=== PATIENT | female | born 1935 | race Caucasian/White ===

== ENCOUNTER 2018-10-10 16:45 | Inpatient (IN) | payer OTHER, MEDICARE ==
[~2018-10-10] VITALS: Ht 162.6 cm; Wt 63.5 kg
--- NOTE | 2018-10-10 16:55 | NUR ---
PT YASMIN [facility] C/O R HIP AND RLE PAIN S/P GLF. PT DENIES ANY HEAD TRAUMA. NO OBVIOUS DEFORMITY NOTED. PLACED ON MONITOR. AWAITING MD LEE.
--- NOTE | 2018-10-10 16:56 | NUR ---
DR BLOOM AT BEDSIDE FOR EVAL.
--- NOTE | 2018-10-10 17:08 | NUR ---
PT TO RADIOLOGY FOR PELVIC CT SCAN VIA [facility].
[2018-10-10] MEDS ORDERED: TRAMADOL HCL 50 MG TABLET ONE (17:26)
[2018-10-10] MEDS ORDERED: TRAMADOL HCL 50 MG TABLET PO ONE (17:30)
[2018-10-10] MEDS ORDERED: ONDANSETRON HCL/PF 4 MG/2 ML VIAL ONE (18:14)
[2018-10-10] MEDS ORDERED: MORPHINE SULFATE INJ 4 MG/ML DISP.SYRIN ONE (18:14)
[2018-10-10 18:17] LABS: BASOPHILS % (AUTO) 0.7 % (0.0-2.0); EOSINOPHILS % (AUTO) 1.2 % (0.0-6.0); HEMATOCRIT 41 % (33-45); HEMOGLOBIN 14.5 g/dL (11.5-14.8); LYMPHOCYTES # (AUTO) 2.1 /CMM (0.8-4.8); LYMPHOCYTES % (AUTO) 34.4 % (20.0-44.0); MEAN CORPUSCULAR HGB CONC 35 g/dl (31.0-36.0); MEAN CORPUSCULAR VOLUME 88 fL (82-100); MONOCYTES # (AUTO) 0.6 /CMM (0.1-1.30); MONOCYTES % (AUTO) 9.8 % (2.0-12.0); NEUTROPHILS # (AUTO) 3.4 /CMM (1.8-8.9); NEUTROPHILS % (AUTO) 53.9 % (43.0-81.0); PLATELET COUNT (AUTO) 215 /CMM (150-450); RED BLOOD CELL COUNT(AUTO) 4.65 MIL/uL (4.0-5.2); WHITE BLOOD COUNT (AUTO) 6.2 K/uL (4.3-11.0)
[2018-10-10] MEDS ORDERED: TRAM50TA2 PO (18:17)
[2018-10-10] MEDS ORDERED: PRAM0.258 PO (18:17)
[2018-10-10] MEDS ORDERED: LOSA50TA39 PO (18:17)
--- NOTE | 2018-10-10 18:18 | NUR ---
CALLED SENIOR TRAINING SPECIALIST ORTHO (LUIS). DR BLOOM SPOKE WITH HER.
[2018-10-10 18:25] LABS: CALCIUM, SERUM 9.9 mg/dL (8.5-10.1); CARBON DIOXIDE 26 mmol/L (21-32); CHLORIDE 99 mmol/L (98-107); CREATININE 0.7 mg/dL (0.6-1.3); GLUCOSE 124 mg/dL (74-106); POTASSIUM 3.9 mmol/L (3.5-5.1); SODIUM SERUM 136 mmol/L (136-145); UREA NITROGEN, BLOOD 20 mg/dL (7-18)
[2018-10-10] MEDS ORDERED: MORPHINE SULFATE INJ 2 MG/ML DISP.SYRIN IV ONE (18:30)
[2018-10-10] MEDS ORDERED: ONDANSETRON HCL/PF 4 MG/2 ML VIAL IVP ONE (18:30)
--- NOTE | 2018-10-10 18:41 | NUR ---
CALLED FOR MED-SURGE BED, TURNED IN MOVE SHEET
--- NOTE | 2018-10-10 19:09 | NUR ---
CALLED [facility], DR WILL WAS PAGED
--- NOTE | 2018-10-10 19:38 | NUR ---
REPORT GIVEN TO JERZY BULLARD FOR FLOYD.
--- NOTE | 2018-10-10 19:48 | NUR ---
REPORT GIVEN TO ANTHONY BULLARD FOR FLOYD
--- NOTE | 2018-10-10 19:50 | NUR ---
TAVERAS CATH FR# 16 INSERTED UNDER ASEPTIC TECHNIQUE.DRAINING MODERATE AMOUNT CLEAR YELLOW URINE.PATIENT TOLERATED PROCEDURE WELL.
--- NOTE | 2018-10-10 19:58 | NUR ---
ICE CHIP GIVEN TO PT FOR DRY MOUTH. APPROVEED BY
--- NOTE | 2018-10-10 20:04 | NUR ---
PATIENT LEFT VIA GURNEY IN [place] CONDITION ACCOMPANIED BY HEDIS SPECIALIST.
--- NOTE | 2018-10-10 20:17 | NUR ---
MS/RN OPENING NOTES PT RECEIVED FROM ER VIA [facility] ACCOMPANIED BY . A/OX3. ON ROOM AIR, BREATHING EVEN AND UNLABORED. DENIES SOB AND PAIN AT THIS TIME. IN NO ACUTE RESPIRATORY DISTRESS. IV TO RAC PATENT AND INTACT. TAVERAS IN PLACE AND DRAINING TO GRAVITY. ORIENTED PT TO ROOM AND CALL LIGHT. HOB ELEVATED AND BILAT. UPPER SIDE RAILS IN PLACE. BED IN LOW/LOCKED POSITION WITH CALL LIGHT IN REACH. WILL CONTINUE TO MONITOR
[2018-10-10 20:24] VITALS: BP 144/96
[2018-10-10 20:30] VITALS: BP 144/96
[2018-10-10] MEDS ORDERED: ZOLPIDEM TARTRATE 5 MG TABLET PO PRN (21:00)
[2018-10-10] MEDS ORDERED: HYDROCODONE/APAP 5/325MG 1 EACH TABLET PO PRN (21:00)
[2018-10-10] MEDS ORDERED: MAG HYDROX/AL HYDROX/SIMETH 30 ML UDC PO PRN (21:00)
[2018-10-10] MEDS ORDERED: HYDROCODONE/APAP 10/325MG 1 EA TABLET PO PRN (21:00)
[2018-10-10] MEDS ORDERED: MAGNESIUM HYDROXIDE 30 ML UDC PO PRN (21:00)
[2018-10-10] MEDS ORDERED: Z GUARD REMEDY 2 OZ OINT TP PRN (21:00)
[2018-10-10] MEDS: ENOXAPARIN SODIUM 40 MG/0.4 ML DISP.SYRIN SQ SCH (22:08)
[2018-10-10] MEDS: LOSARTAN POTASSIUM 50 MG TABLET PO SCH (22:08)
--- NOTE | 2018-10-10 22:23 | NUR ---
MD KVNG WILL AT BEDSIDE
[2018-10-10 23:22] VITALS: BP 147/72
[2018-10-11] VITALS: BP 128/70
--- NOTE | 2018-10-11 00:38 | NUR ---
PAGED EPIC NOTIFIED DR. CALDERON THAT PT'S HR IS STILL ELEVATED 121, BP 128/70. WITH NO C/O PAIN, IN NO DISTRESS. PT IS SLEEPING WELL AND DOES NOT HAVE SOB. DR. CALDERON ORDERED EKG. NOTIFIED RESPIRATORY
--- NOTE | 2018-10-11 01:04 | NUR ---
RELAYED EKG RESULT NO NEW ORDERS
--- NOTE | 2018-10-11 02:39 | NUR ---
PT ROUNDING DONE PT ASLEEP, HOB ELEVATED. BREATHING EVEN AND UNLABORED. DOES NOT APPEAR TO BE IN PAIN OR DISTRESS. WILL CONTINUE TO MONITOR
[2018-10-11] MEDS: ACETAMINOPHEN 325 MG TABLET PO PRN ×3 (03:49→22:11)
--- NOTE | 2018-10-11 04:41 | NUR ---
PT ROUNDING DONE PT ASLEEP, HOB ELEVATED. BREATHING EVEN AND UNLABORED. IN NO ACUTE DISTRESS. WITH MILD PAIN TO RLE AND REQUESTED TYLENOL WHICH WAS ADMINISTERED AT 0349 WITH SMALL SIP OF WATER. NO ADDITIONAL NEEDS EXPRESSED
--- NOTE | 2018-10-11 06:36 | NUR ---
MS/RN CLOSING NOTES PT ASLEEP, A/OX4. ON ROOM AIR, BREATHING EVEN AND UNLABORED. DENIES SOB AND PAIN AT THIS TIME. IV TO LAC PATENT AND INTACT. TAVERAS IN PLACE AND DRAINING TO GRAVITY. NO SIGNIFICANT CHANGES OVERNIGHT. REPOSITIONED TOLERATED. ALL NEEDS MET. BED IN LOW/LOCKED POSITION WITH CALL LIGHT IN REACH, BILAT. UPPER SIDE RAILS IN PLACE. PT REQUESTING TO BE TRANSFERRED TO [facility]. WILL ENDORSE TO DAY SHIFT RN FLOYD.
[2018-10-11 07:13] LABS: BASOPHILS % (AUTO) 0.7 % (0.0-2.0); HEMATOCRIT 39 % (33-45); HEMOGLOBIN 13.1 g/dL (11.5-14.8); MEAN CORPUSCULAR HGB CONC 34 g/dl (31.0-36.0); MEAN CORPUSCULAR VOLUME 90 fL (82-100); MONOCYTES # (AUTO) 0.8 /CMM (0.1-1.30); MONOCYTES % (AUTO) 11.3 % (2.0-12.0); NEUTROPHILS # (AUTO) 3.9 /CMM (1.8-8.9); PLATELET COUNT (AUTO) 208 /CMM (150-450); RED BLOOD CELL COUNT(AUTO) 4.29 MIL/uL (4.0-5.2); WHITE BLOOD COUNT (AUTO) 6.8 K/uL (4.3-11.0)
[2018-10-11 07:13] LABS: CALCIUM, SERUM 8.6 mg/dL (8.5-10.1); CARBON DIOXIDE 26 mmol/L (21-32); CHLORIDE 101 mmol/L (98-107); CREATININE 0.8 mg/dL (0.6-1.3); GLUCOSE 130 mg/dL (74-106); MAGNESIUM 2.3 mg/dL (1.8-2.4); PHOSPHORUS 4.4 mg/dL (2.5-4.9); POTASSIUM 4.1 mmol/L (3.5-5.1); SODIUM SERUM 137 mmol/L (136-145); UREA NITROGEN, BLOOD 19 mg/dL (7-18)
[2018-10-11 07:17] LABS: CHOLESTEROL 178 mg/dL (<200); HDL CHOLESTEROL 93 mg/dL (40-60); LDL 76 mg/dL (0-99); TRIGLYCERIDES 59 mg/dL (30-150)
--- NOTE | 2018-10-11 07:30 | NUR ---
MS/RN Cardio consult Spoke to US on 3W and asked to inform Dr Taylor that there is a cardiac consult for surgery clearance.
[2018-10-11 07:36] VITALS: BP 129/68
[2018-10-11 08:03] VITALS: BP 129/68
--- NOTE | 2018-10-11 08:08 | NUR ---
MS/circuits engineer Spoke with ortho, and made aware of new consult. Patient to remain NPO until reviewed by Dr Savage.
[2018-10-11] MEDS: PANTOPRAZOLE 40 MG TABLET.DR PO SCH (08:31)
[2018-10-11] MEDS: ONDANSETRON HCL/PF 4 MG/2 ML VIAL IVP PRN (08:31)
[2018-10-11] MEDS: LOSARTAN POTASSIUM 50 MG TABLET PO SCH (08:32)
[2018-10-11] MEDS: PRAMIPEXOLE DI-HCL 0.25 MG TABLET PO SCH ×3 (08:32→14:39)
[2018-10-11] MEDS: MORPHINE SULFATE INJ 2 MG/ML DISP.SYRIN IV PRN (08:33)
--- NOTE | 2018-10-11 09:07 | NUR ---
MS/RN S/B Dr Taylor Seen by Dr Taylor - patient is medically cleared for surgery.
--- NOTE | 2018-10-11 10:30 | NUR ---
MS/RN S/B Talya JONES Seen by ortho PA - informed patient that surgery (cannulated screw fixation of right hip) was scheduled for tomorrow morning at 0900. Procedure explained in detail to both patient and daughter at bedside.
--- NOTE | 2018-10-11 12:32 | NUR ---
MS/RN Consent Patient consented for surgery tomorrow. All three consents signed by patient and placed in front of chart.
[2018-10-11] MEDS ORDERED: OMEP20CA10 PO (15:08)
[2018-10-11] MEDS ORDERED: SIME125T3 PO (15:08)
[2018-10-11 15:59] VITALS: BP 140/63
[2018-10-11 16:00] VITALS: BP_SYST 129; BP_SYST 140; BP_DIAS 63; BP_DIAS 68
[2018-10-11] MEDS: ENOXAPARIN SODIUM 40 MG/0.4 ML DISP.SYRIN SQ SCH (16:43)
--- NOTE | 2018-10-11 17:12 | NUR ---
MS/train reservation clerk update and daughter at bedside, up dated asa to plan of care. Made aware that surgery has been scheduled for 9a tomorrow morning.
--- NOTE | 2018-10-11 18:25 | NUR ---
MS/RN End note No new needs or concerns at this time, will endorse to manufacturing shift supervisor. Patient aware of the NPO order from midnight.
[2018-10-11] MEDS: PRAMIPEXOLE DI-HCL 0.25 MG TABLET PO PRN ×2 (18:29→20:00)
--- NOTE | 2018-10-11 19:05 | NUR ---
RN MS OPENING NOTES RECEIVED PATIENT IN BED, AWAKE ALERT AND ORIENTED X4, ABLE TO MAKE NEEDS KNOWN, RESPIRATIONS EVEN AND UNLABORED WITH EQUAL RISE AND FALL OF CHEST, DENIES ANY PAIN OR DISCOMFORT AT THIS TIME,TAVERAS CATHETER INTACT AND DRAINING WELL URINE YELLOW, IV SITE TO RIGHT AC #18 G INTACT AND PATENT, NO REDNESS, NO INFILTRATION, FLUIDS OFFERED, REPOSITIONING OFFERED, ORIENTED TO STAFF AND CALL LIGHT AND KEPT WITHIN REACH, SAFETY PRECAUTIONS IN PLACE, LOW BED AND LOCKED, PATIENT VERBALIZES UNDERSTANDING OF NPO AT MIDNIGHT DISCUSSED PLAN OF CARE, AT THIS TIME ALL NEEDS ATTENDED WILL CONTINUE TO MONITOR.
[2018-10-11 20:00] VITALS: BP 146/73
--- NOTE | 2018-10-11 21:29 | NUR ---
RN MS NOTES YUAN HELD, PATIENT FOR SURGERY PROCEDURE IN AM.
[2018-10-11] MEDS: SENNOSIDES 8.6 MG TABLET PO SCH (22:06)
--- NOTE | 2018-10-11 22:11 | NUR ---
RN MS NOTES PATIENT COMPLAINT OF PAIN TO RIGHT HIP AREA 5/10 REQUESTING FOR TYLENOL , PRN TYLENOL GIVEN ORDERED AND REPOSITIONED, WILL CONTINUE TO MONITOR FOR EFFECTIVENESS.
--- NOTE | 2018-10-11 22:20 | NUR ---
RN MS NOTES PATIENT REQUESTED TO MAKE ROOM WARMER, ENGINEERING CALLED AND TEMPERATURE ADJUSTED, WARM BLANKETS PROVIDED.
--- NOTE | 2018-10-11 22:30 | NUR ---
RN MS NOTES PATIENT REQUESTED FOR SLEEP AIDE, AMBIEN OFFERED PATIENT STATES SHE TAKES "DIAZEPAM, VALIUM AT HOME AND NOT AMBIEN" MD DR. KVNG ABERNATHY MADE AWARE WITH NEW ORDERS TO DISCONTINUE AMBIEN AND NEW ORDER FOR VALIUM 5MG PO HS PRN AT NIGHT FOR SLEEP. ORDERS READ BACK , NOTED AND CARRIED OUT.
[2018-10-11] MEDS: DIAZEPAM 5 MG TABLET PO PRN (22:47)
--- NOTE | 2018-10-11 22:47 | NUR ---
RN MS NOTES PRN VALIUM 5MG GIVEN ORDERED. WILL CONTINUE TO MONITOR FOR EFFECTIVENESS. PATIENT WAS THANKFUL
--- NOTE | 2018-10-11 23:01 | NUR ---
RN MS NOTES PATIENT STATES SHE HAS "FEELINGS OF INDIGESTION" REQUESTING FOR INDIGESTION MEDICATION. PRN MAALOX OFFERED, PATIENT AGREED, GIVEN ORDERED, WILL CONTINUE TO MONITOR FOR EFFECTIVENESS.
[2018-10-12] VITALS (11 sets, daily range): BP systolic 138–184; BP diastolic 69–95
[2018-10-12] MEDS: IV NS 0.9% 1,000 ML IV PRN ×2 (00:05→15:38)
--- NOTE | 2018-10-12 05:30 | NUR ---
ALEAH GARY NOTES MOVED PATIENT TO ROOM 320-1 ORIENTED TO ROOM AND FLOOR. ALL NEEDS AT BEDSIDE, CALL LIGHT KEPT WITHIN REACH. Addendum: 10/12/18 at 0635 by LAURA MATTHEW RN ALL BELONGINGS AND CHART MOVED WITH PATIENT
--- NOTE | 2018-10-12 06:37 | NUR ---
ALEAH MS CLOSING NOTES PATIENT IN BED, AWAKE ALERT AND ORIENTED X4, ABLE TO MAKE NEEDS KNOWN, RESPIRATIONS EVEN AND UNLABORED WITH EQUAL RISE AND FALL OF CHEST, DENIES ANY PAIN OR DISCOMFORT AT THIS TIME,TAVERAS CATHETER INTACT AND DRAINING WELL URINE YELLOW, CLEAR IV SITE TO RIGHT AC #18 G INTACT AND PATENT, IVF RUNNING ORDERED, NO REDNESS, NO INFILTRATION, PATIENT IS NPO STATUS FOR SURGERY, REPOSITIONING OFFERED, OFFERED TO FLOAT HEELS PATIENT HOWEVER DID NOT WANT. CALL LIGHT KEPT WITHIN REACH, SAFETY PRECAUTIONS IN PLACE, LOW BED AND LOCKED, AT THIS TIME ALL NEEDS ATTENDED WILL CONTINUE TO MONITOR. Addendum: 10/12/18 at 0649 by LAURA MATTHEW RN WILL ENDORSE TO NEXT SHIFT FOR CONTINUITY OF CARE.
[2018-10-12] MEDS: PANTOPRAZOLE 40 MG TABLET.DR PO SCH (07:30)
--- NOTE | 2018-10-12 08:00 | NUR ---
RN NOTES RECEIVED PATIENT IN THE BED A/O X3/4. PATIENT ON O2-2L NC, REFUSED PAIN AT THIS TIME, V/S TAKEN STABLE. PATIENT NPO GOING TO INSTRUCTOR BRIDGE RIGHT HIP SURGERY. F/C DRAIN LIGHT YELLOW OUTPUT. INFUSING NS AT 100 ML/NS ON RIGHT AC AREA INTACT. FAMILY NEXT TO THE BED, SAFETY PRECAUTION MAINTAINED ALL THE TIME.
[2018-10-12 08:01] LABS: BASOPHILS % (AUTO) 0.5 % (0.0-2.0); EOSINOPHILS % (AUTO) 2.4 % (0.0-6.0); HEMATOCRIT 39 % (33-45); HEMOGLOBIN 13.1 g/dL (11.5-14.8); LYMPHOCYTES # (AUTO) 1.5 /CMM (0.8-4.8); LYMPHOCYTES % (AUTO) 22.7 % (20.0-44.0); MEAN CORPUSCULAR HGB CONC 34 g/dl (31.0-36.0); MEAN CORPUSCULAR VOLUME 90 fL (82-100); MONOCYTES # (AUTO) 0.8 /CMM (0.1-1.30); MONOCYTES % (AUTO) 11.9 % (2.0-12.0); NEUTROPHILS % (AUTO) 62.5 % (43.0-81.0); PLATELET COUNT (AUTO) 179 /CMM (150-450); RED BLOOD CELL COUNT(AUTO) 4.33 MIL/uL (4.0-5.2); WHITE BLOOD COUNT (AUTO) 6.4 K/uL (4.3-11.0)
[2018-10-12 08:07] LABS: CALCIUM, SERUM 8.9 mg/dL (8.5-10.1); CARBON DIOXIDE 27 mmol/L (21-32); CHLORIDE 101 mmol/L (98-107); CREATININE 0.7 mg/dL (0.6-1.3); GLUCOSE 135 mg/dL (74-106); MAGNESIUM 2.3 mg/dL (1.8-2.4); PHOSPHORUS 3.2 mg/dL (2.5-4.9); SODIUM SERUM 137 mmol/L (136-145); UREA NITROGEN, BLOOD 12 mg/dL (7-18)
[2018-10-12] MEDS ORDERED: MIDAZOLAM HCL 2 MG/2ML VIAL ONE (08:27)
[2018-10-12] MEDS ORDERED: FENTANYL PF 250MCG/5ML AMPUL ONE (08:28)
[2018-10-12] MEDS ORDERED: ROCURONIUM BROMIDE 50 MG/5 ML ONE (08:29)
[2018-10-12] MEDS ORDERED: FAMOTIDINE/PF INJ 20 MG/2 ML VIAL IV ONE (08:29)
[2018-10-12] MEDS ORDERED: BACITRACIN 50000 UNITS/VIAL ONE (08:34)
[2018-10-12] MEDS ORDERED: BUPIVACAINE MPF 0.5% W/EPI INJ 30 ML VIAL ONE (08:35)
[2018-10-12] MEDS ORDERED: BUPIVACAINE 0.5 % PF 150 MG/30 ML VIAL ONE (08:35)
[2018-10-12] MEDS ORDERED: ANESTHESIA TRAY IN PYXIS 1 EA TRAY MC ONE (08:36)
[2018-10-12] MEDS: LOSARTAN POTASSIUM 50 MG TABLET PO SCH ×2 (09:00→12:27)
[2018-10-12] MEDS ORDERED: SEVOFLURANE 250 ML BOTTLE IH ONE (09:17)
--- NOTE | 2018-10-12 09:20 | NUR ---
RN NOTES PATIENT WORK TICKET DISTRIBUTOR FOR SURGERY AT THIS TIME, PATIENT STABLE A/O X4, V/S TAKEN STABLE. PATIENT NOTED HAVE ALLERGY OF CODEINE, AND PCN.
--- NOTE | 2018-10-12 10:45 | NUR ---
ICU POST OP RN NOTES: 1045 Rec'd pt from OR, rec'd report from Pedro RN & Dr. Batres (anesth). Pt is A/O x 3, not in any distress, denies any pain/discomfort at this time. Placed on NC at 4lpm, sating at 98%. IV line kept patent & intact w/ NS running. Post op dressing intact & dry noted serous drainage circled from outside. Distal CMS on R leg intact. PACU orders faxed to pharmacy. BP monitored closely. BS checked 117 mg/dl. Pt kept warm. Safety precaution observed at all times w/ bed in lowest & locked pos. 1130 Report given to Carmen for FLOYD.
[2018-10-12] MEDS ORDERED: METOCLOPRAMIDE HCL 10 MG/2 ML VIAL IV PRN (11:30)
[2018-10-12] MEDS ORDERED: hydrALAZINE HCL IV 20 MG VIAL IV PRN (11:30)
--- NOTE | 2018-10-12 12:20 | NUR ---
RN NOTES PATIENT BACK FROM SURGERY AT THIS TIME, AWAKE, A/O X4 ON O2 NC NO ACUTE RESPIRATORY DISTRESS. PATIENT WAS COMPLAINING OF PAIN ON RIGHT HIP 10/10 PER PAIN SCALE, V/S TAKEN BP -153/81, P-107, R-20, O3-99 NC, T-98.2. DVT PUMP ON, INFUSING NS AT 100 ML/HR ON RIGHT AC INTACT. F/C DRAIN LIGHT YELLOW OUTPUT. MD ORDERS TAKEN AND CARRIED OUT. CALL LIGHT WITHIN TO REACH, APPLIED ICE APPLICANT. FAMILY NEXT TO THE BED. CONTINUED MONITORING.
[2018-10-12] MEDS: MORPHINE SULFATE INJ 2 MG/ML DISP.SYRIN IV PRN (12:26)
--- NOTE | 2018-10-12 12:27 | NUR ---
RN NOTES ADMINISTERED MORPHINE SULF 2 MG/ML IV PUSH PER PATIENT REQUEST PAIN 10/10 PER PATIENT REQUEST, V/S TAKEN BP- 165/ 80, P-104, PATIENT STABLE HAS NO ACUTE RESPIRATORY DISTRESS, DVT PUMP ON, EDUCATED PATIENT FOR SPIROMETER USE, PATIENT VERBALIZED UNDERSTANDING, FAMILY NEXT TO THE BED. CONTINUED MONITORING.
[2018-10-12] MEDS: PRAMIPEXOLE DI-HCL 0.25 MG TABLET PO PRN ×3 (14:53→22:22)
--- NOTE | 2018-10-12 14:53 | NUR ---
RN NOTES ADMINISTERED MIRAPEX 0.25 MG PO PRN PRESCRIBED, CONTINUED MONITORING. PATIENT WALK WITH PT 25 FEET, USING WALKER, SAFETY PRECAUTION MAINTAINED ALL THE TIME.
--- NOTE | 2018-10-12 18:54 | NUR ---
RN NOTES ADMINISTERED MIRAPEX PRESCRIBED PRN, CONTINUED MONITORING.
[2018-10-12] MEDS: ACETAMINOPHEN 325 MG TABLET PO PRN (19:13)
--- NOTE | 2018-10-12 19:13 | NUR ---
RN NOTES ADMINISTERED TYLENOL 650 MG PO PRN FOR RIGHT HIP PAIN 07/27 PER PATIENT REQUEST, INFUSING NS AT100 MG/ML ON LEFT FA INTACT. NEEDS ATTENDED AND ANTICIPATED, CALL LIGHT WITHIN TO REACH,FAMILY NEXT TO THE BED, SAFETY PRECAUTION MAINTAINED ALL THE TIME. ENDORSED ONCOMING NURSE FOR PLAN OF CARE.
--- NOTE | 2018-10-12 19:40 | NUR ---
MS/RN OPENING NOTES PT RECEIVED AWAKE WITH FAMILY AT BEDSIDE. ON 2L O2 VIA NC, BREATHING EVEN AND UNLABORED. IN NO ACUTE RESPIRATORY DISTRESS. DENIES SOB. NOTED 3/10 PAIN TO RIGHT HIP, RECENTLY RECEIVED TYLENOL. S/P RIGHT HIP SURGERY TODAY. IV TO LFA PATENT AND INTACT RUNNING IVF ORDERED. HOB ELEVATED. BILAT. UPPER SIDE RAILS IN PLACE AND BED IN LOW/LOCKED POSITION. CALL LIGHT IN REACH. WILL CONTINUE TO MONITOR
[2018-10-12] MEDS: ENOXAPARIN SODIUM 40 MG/0.4 ML DISP.SYRIN SQ SCH (21:00)
[2018-10-12] MEDS: ANCEF 1 GM/50 ML D5W IV SCH ×2 (22:22)
[2018-10-12] MEDS: SENNOSIDES 8.6 MG TABLET PO SCH (22:22)
--- NOTE | 2018-10-12 22:25 | NUR ---
MIRAPEX PT REQUESTED MIRAPEX FOR RESTLESS LEG SYNDROME. ADMINISTERED ORDERED. NO FURTHER NEEDS EXPRESSED AT THIS TIME
[2018-10-12] MEDS: DIAZEPAM 5 MG TABLET PO PRN (23:26)
--- NOTE | 2018-10-12 23:30 | NUR ---
VALIUM PT REQUESTING SLEEP AID. ADMINISTERED VALIUM ORDERED.
[2018-10-13] MEDS: ACETAMINOPHEN 325 MG TABLET PO PRN ×3 (03:04→22:46)
[2018-10-13] MEDS: MORPHINE SULFATE INJ 2 MG/ML DISP.SYRIN IV PRN (03:08)
[2018-10-13] MEDS: ONDANSETRON HCL/PF 4 MG/2 ML VIAL IVP PRN (03:10)
--- NOTE | 2018-10-13 03:22 | NUR ---
PAIN MEDS PT INITIALLY REQUESTED FOR TYLENOL FOR RIGHT HIP PAIN, THEN CHANGED HER MIND AFTER TYLENOL WAS REMOVED FROM THE PYXIS. REQUESTED FOR PRN MORPHINE INSTEAD WITH ZOFRAN. ADMINISTERED ORDERED AND REPOSITIONED PT TOLERATED. WARM BLANKETS PROVIDED. NO FURTHER NEEDS EXPRESSED AT THIS TIME
[2018-10-13 06:32] LABS: BASOPHILS % (AUTO) 0.4 % (0.0-2.0); EOSINOPHILS % (AUTO) 2.3 % (0.0-6.0); HEMATOCRIT 38 % (33-45); HEMOGLOBIN 12.9 g/dL (11.5-14.8); LYMPHOCYTES # (AUTO) 1.1 /CMM (0.8-4.8); LYMPHOCYTES % (AUTO) 15.5 % (20.0-44.0); MEAN CORPUSCULAR HGB CONC 34 g/dl (31.0-36.0); MEAN CORPUSCULAR VOLUME 91 fL (82-100); MONOCYTES % (AUTO) 13.9 % (2.0-12.0); NEUTROPHILS # (AUTO) 4.8 /CMM (1.8-8.9); NEUTROPHILS % (AUTO) 67.9 % (43.0-81.0); PLATELET COUNT (AUTO) 160 /CMM (150-450); RED BLOOD CELL COUNT(AUTO) 4.21 MIL/uL (4.0-5.2); WHITE BLOOD COUNT (AUTO) 7.1 K/uL (4.3-11.0)
[2018-10-13] MEDS: ANCEF 1 GM/50 ML D5W IV SCH ×4 (06:32→15:14)
--- NOTE | 2018-10-13 07:00 | NUR ---
MS/RN CLOSING NOTES PT ASLEEP, RESPONSIVE TO NAME. ON 2L O2 VIA NC, BREATHING EVEN AND UNLABORED. DENIES SOB, PAIN TO RIGHT HIP AT A TOLERABLE LEVEL AT THIS TIME. TAVERAS IN PLACE AND DRAINING TO GRAVITY. IV TO LFA PATENT AND INTACT RUNNING IVF ORDERED. PRN PAIN MEDS ADMINISTERED ORDERED. SLEPT INTERMITTENTLY THROUGHOUT THE NIGHT. ONLY ABLE TO TURN PT ONCE DESPITE FREQUENT ENCOURAGEMENT Q2H. DRESSING TO RIGHT HIP C/D/I. NO BLEEDING NOTED. BED IN LOW/LOCKED POSITION WITH CALL LIGHT IN REACH. BILAT. UPPER SIDE RAILS IN PLACE. HOB ELEVATED.
[2018-10-13 07:03] LABS: CALCIUM, SERUM 8.3 mg/dL (8.5-10.1); CARBON DIOXIDE 26 mmol/L (21-32); CHLORIDE 102 mmol/L (98-107); CREATININE 0.7 mg/dL (0.6-1.3); GLUCOSE 148 mg/dL (74-106); MAGNESIUM 2.1 mg/dL (1.8-2.4); PHOSPHORUS 2.7 mg/dL (2.5-4.9); SODIUM SERUM 136 mmol/L (136-145); UREA NITROGEN, BLOOD 10 mg/dL (7-18)
[2018-10-13] MEDS: IV NS 0.9% 1,000 ML IV PRN ×2 (07:14→23:42)
--- NOTE | 2018-10-13 07:48 | NUR ---
RN OPENING NOTES PT RESTING IN BED. NO APPARENT S/S OF PAIN, DISTRESS OR SOB AT THIS TIME. PT HAS LEFT FA #22 RUNNING NS @100ML/HR. PT S/P RIGHT HIP SX. SAFETY PRECAUTIONS IN PLACE, BED IN LOWEST LOCKED POSITION, X2 SIDE RAILS UP AND CALL LIGHT WITHIN REACH. WILL CONTINUE TO MONITOR.
[2018-10-13 08:10] VITALS: BP 131/87
[2018-10-13] MEDS: ENOXAPARIN SODIUM 40 MG/0.4 ML DISP.SYRIN SQ SCH (08:29)
[2018-10-13] MEDS: LOSARTAN POTASSIUM 50 MG TABLET PO SCH (08:33)
[2018-10-13] MEDS: PANTOPRAZOLE 40 MG TABLET.DR PO SCH (08:33)
[2018-10-13] MEDS: PRAMIPEXOLE DI-HCL 0.25 MG TABLET PO PRN ×3 (14:52→22:46)
[2018-10-13 16:00] VITALS: BP 116/74
--- NOTE | 2018-10-13 18:30 | NUR ---
RN CLOSING NOTES PT AWAKE AND RESTING IN BED. NO COMPLAINTS OF PAIN, SOB OR DISTRESS AT THIS TIME. ALL PATIENT NEEDS MET DURING SHIFT. PT HAS A LEFT FOREARM #22 IV INTACT AND RUNNING NS @100 ML/HR. SAFETY PRECAUTIONS IN PLACE, BED IN LOWEST LOCKED POSITION, X2 SIDE RAILS UP AND CALL LIGHT WITHIN REACH. WILL CONTINUE TO MONITOR.
--- NOTE | 2018-10-13 19:25 | NUR ---
RN PM OPENING NOTES BEDSIDE REPORT RECIEVED FROM EBER BULLARD. PT RESTING IN BED. NO APPARENT S/S OF PAIN, DISTRESS OR SOB AT THIS TIME. PT HAS LEFT FA #22 RUNNING NS @100ML/HR. PT S/P RIGHT HIP SX. SAFETY PRECAUTIONS IN PLACE, BED IN LOWEST LOCKED POSITION, X2 SIDE RAILS UP AND CALL LIGHT WITHIN REACH. WILL CONTINUE TO MONITOR.
[2018-10-13 20:00] VITALS: BP 148/74
--- NOTE | 2018-10-13 20:04 | NUR ---
MIRAPEX PRN. PATIENT REQUESTED MIRAPEX ADMINISTERED PRN PER ORDERS. PATIENT UPSET THAT SHE DID NOT RECIEVE 5PM DOSE. PLAN MADE TO ADMINISTER HER 3RD DOSE LATE, LATER TONIGHT.
[2018-10-13] MEDS: SENNOSIDES 8.6 MG TABLET PO SCH (22:46)
--- NOTE | 2018-10-13 22:46 | NUR ---
TYELENOL, MIRAPEX PRN. SWOLLEN RIGHT HIP. MIRAPEX PRN ADMINISTERED TO MAKE UP FOR MISSED DOSE EARLIER TODAY. TYELENOL ADMINISTERED PER PATIENT REQUEST. PAIN 2/10 ON RIGHT HIP. ICE PACKS APPLIED TO HIP SWOLLEN AND WARM AND PAINFUL TO TOUCH AT SURGICAL DRESSING SITE. NO REDNESS NOTED. PATIENT ALSO HAS TEMP OF 100.8. WILL CONT TO MONITOR.
[2018-10-13] MEDS: DIAZEPAM 5 MG TABLET PO PRN (23:06)
--- NOTE | 2018-10-13 23:10 | NUR ---
VALIUM PRN ADMINISTERED. PATIENT REQUESTED VALIUM PRN TO HELP HER SLEEP. VALIUM ADMINISTERED.
--- NOTE | 2018-10-13 23:30 | NUR ---
scd/ ivf refusal. patient states. "I want to sleep. that iv keeps beeping and I don't want it on tonight." patient also not wearing her scd pumps pt states, "Those things also bother me. I don't want to wear those things right now." reviewed reasoning for ordered treatments patient states, " I will be fine, no thank you." patient post op day 2 tolerating po intake. will endores to day shift to discuss during md rounds for this non emergent issues.
[2018-10-14] VITALS: BP 146/70
[2018-10-14 04:00] VITALS: BP 152/79
[2018-10-14] MEDS: PANTOPRAZOLE 40 MG TABLET.DR PO SCH (06:47)
--- NOTE | 2018-10-14 06:53 | NUR ---
RN PM CLOSING NOTES PT AWAKE AND RESTING IN BED. NO COMPLAINTS OF PAIN, SOB OR DISTRESS AT THIS TIME. ALL PATIENT NEEDS MET DURING SHIFT. PT REFUSING IVF STATES, " i AM JUST NOT READY TO HEAR THAT BEEPING RIGHT NOW. SAFETY PRECAUTIONS IN PLACE, BED IN LOWEST LOCKED POSITION, X2 SIDE RAILS UP AND CALL LIGHT WITHIN REACH.
[2018-10-14 07:18] LABS: BASOPHILS % (AUTO) 0.6 % (0.0-2.0); EOSINOPHILS % (AUTO) 3.2 % (0.0-6.0); HEMATOCRIT 36 % (33-45); HEMOGLOBIN 12.4 g/dL (11.5-14.8); LYMPHOCYTES # (AUTO) 1.6 /CMM (0.8-4.8); LYMPHOCYTES % (AUTO) 28.4 % (20.0-44.0); MEAN CORPUSCULAR HGB CONC 35 g/dl (31.0-36.0); MEAN CORPUSCULAR VOLUME 89 fL (82-100); MONOCYTES # (AUTO) 0.9 /CMM (0.1-1.30); MONOCYTES % (AUTO) 15.2 % (2.0-12.0); NEUTROPHILS % (AUTO) 52.6 % (43.0-81.0); PLATELET COUNT (AUTO) 174 /CMM (150-450); RED BLOOD CELL COUNT(AUTO) 4.04 MIL/uL (4.0-5.2); WHITE BLOOD COUNT (AUTO) 5.7 K/uL (4.3-11.0)
[2018-10-14 07:28] LABS: CALCIUM, SERUM 8.9 mg/dL (8.5-10.1); CARBON DIOXIDE 26 mmol/L (21-32); CHLORIDE 98 mmol/L (98-107); CREATININE 0.6 mg/dL (0.6-1.3); GLUCOSE 137 mg/dL (74-106); PHOSPHORUS 2.9 mg/dL (2.5-4.9); POTASSIUM 3.5 mmol/L (3.5-5.1); SODIUM SERUM 133 mmol/L (136-145); UREA NITROGEN, BLOOD 12 mg/dL (7-18)
--- NOTE | 2018-10-14 07:50 | NUR ---
MS/RN - Assessment Patient awake, A/O x 4, afebrile, reports mild pain to right hip op site CA= /, refused pain medication for now. Coles catheter in place draining clear yellow urine. Skin is intact except for RFA scab and right hip surgical incision S/P cannulated screw fixation of the right hip fracture with Dr. Savage POD#2. Right hip dressing is intact with minimal drainage, no surrounding erythema, or excess warmth. Initial dressing change to be done today. Skin on BLE is warm to touch, negative calf tenderness, negative for edema, sensation on both lower ext are intact, 50% weight bearing on RLE. Labs reviewed, noted with low sodium, relayed to Dr. Cantu, currently on NS at 100 ml/hr. Fall precautions maintained. All needs attended and met. Will continue with current plan of care.
[2018-10-14 08:00] VITALS: BP 175/77
[2018-10-14] MEDS: LOSARTAN POTASSIUM 50 MG TABLET PO SCH (08:42)
[2018-10-14] MEDS: ENOXAPARIN SODIUM 40 MG/0.4 ML DISP.SYRIN SQ SCH (08:43)
--- NOTE | 2018-10-14 10:15 | NUR ---
MS/RN - Coles removal Coles catheter removed as ordered, trial void initiated, bedside commode in place.
--- NOTE | 2018-10-14 12:30 | NUR ---
MS/RN -Notes Patient able to void without difficulty, 200 ml of clear yellow urine output.
[2018-10-14] MEDS: ACETAMINOPHEN 325 MG TABLET PO PRN ×2 (12:41→20:56)
--- NOTE | 2018-10-14 13:00 | NUR ---
MS/RN - PT treatment Patient tolerated treatment well, able to ambulate 20 ft with FWW, no loss of balance noted.
--- NOTE | 2018-10-14 13:10 | NUR ---
MS/RN - s/b PA ortho Seen and examined by Amina Melendez, right hip dressing was changed.
[2018-10-14] MEDS: PRAMIPEXOLE DI-HCL 0.25 MG TABLET PO PRN ×3 (14:26→21:04)
[2018-10-14 16:00] VITALS: BP 142/70
--- NOTE | 2018-10-14 17:14 | NUR ---
MS/RN - End of shift summary notes Patient doing well, remain afebrile, denies pain, not in any form of distress, dressing on the right hip incision is clean, dry, intact. Stable per ortho for rehab, continue partial weight bearing on the RLE, f/u with Dr. Savage in 2 weeks. All needs attended and met. Will continue with current plan of care.
--- NOTE | 2018-10-14 19:20 | NUR ---
MS/RN OPENING NOTES PT RECEIVED AWAKE, RESTING COMFORTABLY IN BED. ON ROOM AIR, BREATHING EVEN AND UNLABORED. DENIES SOB AND PAIN TO RIGHT HIP AT THIS TIME. IV TO RIGHT WRIST PATENT AND INTACT RUNNING IVF ORDERED. TAVERAS REMOVED TODAY AND VOIDING WELL. NO BM YET. DRESSING CHANGE TO RIGHT HIP DONE TODAY, DRESSING C/D/I. NO SIGNS OF BLEEDING NOTED. BED IN LOW/LOCKED POSITION WITH HOB ELEVATED AND BILAT. UPPER SIDE RAILS IN PLACE. WILL CONTINUE TO MONITOR
[2018-10-14 20:00] VITALS: BP 159/81
--- NOTE | 2018-10-14 20:36 | NUR ---
HAND OFF REPORT PT AWAKE, SITTING UP IN BED. BEDSIDE REPORT GIVEN TO ALEAH BEE. NO NEEDS ANTICIPATED AT THIS TIME. PT IN STABLE CONDITION
--- NOTE | 2018-10-14 20:40 | NUR ---
RN prettysurjolie opening notes PT is sitting up in bed comfortably. PT is awake, alert and oriented X4. PT denies any pain or any discomfort. PT respiration is equal and unlabored. No SOB. No nausea or vomiting. Afebrile. VS is stable. IV sites is intact, patent and infusing well. Gave warm blanket for comfort. Bed at low position and call light is within reach. Instructed to call. Will continue to monitor and assist all needs.
[2018-10-14] MEDS: SENNOSIDES 8.6 MG TABLET PO SCH (21:04)
[2018-10-14] MEDS: DIAZEPAM 5 MG TABLET PO PRN (22:55)
[2018-10-15] MEDS: IV NS 0.9% 1,000 ML IV PRN (01:38)
--- NOTE | 2018-10-15 03:20 | NUR ---
RN medsurg notes Pt is refusing IV fluid 0.9% NS 1000ml @ 100ml/hr. Pt stated "I don't want the fluid because I go to bathroom all the time." Pt education and teaching given. Pt verbalize understanding and still refused.
[2018-10-15] MEDS: ACETAMINOPHEN 325 MG TABLET PO PRN ×2 (05:17→12:28)
--- NOTE | 2018-10-15 05:20 | NUR ---
RN medsurg notes PT is complaining of headache. Administered Tylenol 650mg PO. Will continue to monitor.
--- NOTE | 2018-10-15 06:31 | NUR ---
RN medsurg closing notes PT is alert and oriented X4. Pt is resting in bed comfortably with eyes closed. Arouse easily. PT denies any pain or discomfort. NO SOB. No nausea or vomiting. IV sites is intact, patent and flush easily. PT refused the IV fluid NS 0.9%. Pt education given regarding the meds IV fluid. Safety precautions is maintained. Routine meds have been given including PRN meds and assisted all needs. Will endorse to morning nurse for FLOYD.
[2018-10-15] MEDS: PANTOPRAZOLE 40 MG TABLET.DR PO SCH (07:23)
--- NOTE | 2018-10-15 07:26 | NUR ---
MS/RN - Assessment Patient is awake, A/O x 4, no complaints overnight, remain afebrile, no apparent distress seen, stable on room air. POD#3 cannulated screw fixation of the right hip fracture with Dr. Savage. Right hip dressing is clean, dry, intact, no surrounding erythema, or excess warmth. Skin on BLE is warm to touch, negative calf tenderness, negative for edema, sensation on both lower ext are intact, continue partial weight bearing on RLE. Fall precautions maintained. Anticipate discharge to ARU today.
[2018-10-15 08:00] VITALS: BP 143/71
[2018-10-15] MEDS: ENOXAPARIN SODIUM 40 MG/0.4 ML DISP.SYRIN SQ SCH (08:32)
[2018-10-15] MEDS: LOSARTAN POTASSIUM 50 MG TABLET PO SCH (08:32)
--- NOTE | 2018-10-15 12:00 | NUR ---
RECEIVED REPORT FROM KATRN -PT ALERT AND ORIENTED X4.VERBALLY RESPONSIVE AND EATING HER SANDWICH WHILE SITTING IN THE EDGE OF THE BED. C/O RT HIP PAIN AND RESTLESS BLE.WILL ADMINISTER TYLENOL 650 MG PO AND MIRAPEX PRN.CALL LIGHT PLACED WITHIN REACH.
[2018-10-15] MEDS: PRAMIPEXOLE DI-HCL 0.25 MG TABLET PO PRN (12:28)
--- NOTE | 2018-10-15 15:11 | NUR ---
DISCHARGE INSTRUCTIONS,MED RECONCILIATION,MED AND HEALTH TEACHING GIVEN TO THE PT.BELONGINGS CHECKED.IV H/L REMOVED TO RT WRIST WITH NO BLEEDING OR SWELLING NOTED ON THE SITE. REPORT CALLED IN TO ALEAH LOCKETT OF [facility].AWAITING FOR PICK-UP.PT MADE BOWEL MOVEMENT TODAY.PT'S AND CG AT BEDSIDE. CALL LIGHT PLACED WITHIN REACH.
[2018-10-15 16:00] VITALS: BP 153/92
[2018-10-15] MEDS ORDERED: ACETAMINOPHEN 325 MG TABLET PO ONE (16:30)
--- NOTE | 2018-10-15 16:42 | NUR ---
DISCHARGED TO [facility] WITH STABLE V/S.REPORT CALLED IN TO ALEAH LOCKETT OF [facility].DENIES ANY PAIN OR DISTRESS.P/U VIA AMBULANCE.
== END 2018-10-15 16:45 | DRG 482 ==
LOC: ER 16:46 → MEDSG2 19:59 → MED 10-12 07:44
PROVIDERS: ATTEND Internal Medicine
PROC: 0QS604Z Reposition Right Upper Femur with Internal Fixation Device, Open Approach (ICD-10-PCS; principal; 2018-10-12)
DX: S72.011A Unspecified intracapsular fracture of right femur, initial encounter for closed fracture (principal); K57.30 Diverticulosis of large intestine without perforation or abscess without bleeding; I10 Essential (primary) hypertension; E11.9 Type 2 diabetes mellitus without complications; G25.81 Restless legs syndrome; Z85.820 Personal history of malignant melanoma of skin; W18.30XA Fall on same level, unspecified, initial encounter; Y92.89 Other specified places as the place of occurrence of the external cause
CPT/HCPCS: 36415; 71045-TC; 72192-TC; 73502; 80048-TC; 80061-TC; 82962-TC; 83735-TC; 84100-TC; 84439-TC; 84443-TC; 85025-TC; 85610-TC; 86850-TC; 87081-TC; 93307-TC; 94799-TC; 97110-TC; 97116-TC; 97530-TC; A6209; A6402; C1713; G0378; J0690; J1650; J2250; J2270; J2405; J2704; J2710; J2765; J3010; J3490; J7030; J7060

== ENCOUNTER 2019-06-09 22:03 | Emergency (ER) | payer BC, MEDICARE, OTHER ==
[~2019-06-09] VITALS: Ht 162.6 cm; Wt 63.5 kg
[2019-06-09 22:03] VITALS: BP 155/86
[~2019-06-09 22:03] MED LIST: LOSA50TA39 PO; OMEP20CA15 PO; PRAM0.258 PO; SIME125T3 PO; TRAM50TA2 PO
--- NOTE | 2019-06-09 22:10 | NUR ---
PT PRESENTED TO THE ER WITH A C/O TRANSLUSCENT SLEVE FROM HEARING AID IS LODGED IN HER RT EAR.
--- NOTE | 2019-06-09 22:51 | NUR ---
DR GAINES IS AT THE BEDSIDE
--- NOTE | 2019-06-09 23:15 | NUR ---
PT'S RT EAR WAS IRRIGATED.
--- NOTE | 2019-06-10 | NUR ---
PT LEFT WITHOUT ACI. PT AMBULATED OUT WITH A STEADY GAIT.
== END 2019-06-10 | disposition home or self-care (01) ==
LOC: ER 22:03
DX: T16.1XXA Foreign body in right ear, initial encounter (principal); I10 Essential (primary) hypertension; E11.9 Type 2 diabetes mellitus without complications; Z88.0 Allergy status to penicillin; Z88.5 Allergy status to narcotic agent; Z79.899 Other long term (current) drug therapy; X58.XXXA Exposure to other specified factors, initial encounter; Y93.89 Activity, other specified; Y92.89 Other specified places as the place of occurrence of the external cause; Y99.8 Other external cause status

== ENCOUNTER 2023-10-01 08:57 | Emergency (ER) | payer MEDICARE, BC ==
[~2023-10-01] VITALS: Ht 165.1 cm; Wt 63.5 kg
[2023-10-01 09:05] VITALS: BP 147/78; TEMP 98.4; O2SAT 100
[2023-10-01] MEDS ORDERED: KETOROLAC TROMETHAMINE INJ 30 MG/ML VIAL ONE (09:18)
[2023-10-01] MEDS: KETOROLAC TROMETHAMINE INJ 60 MG/2 ML VIAL IM ONE (09:23)
[2023-10-01] MEDS ORDERED: NAPR-1164 PO (11:14)
== END 2023-10-01 11:38 | disposition home or self-care (01) ==
LOC: ER 08:59
DX: M25.552 Pain in left hip (principal); I10 Essential (primary) hypertension; E11.9 Type 2 diabetes mellitus without complications; Z88.0 Allergy status to penicillin; Z88.5 Allergy status to narcotic agent; Z79.899 Other long term (current) drug therapy
CPT/HCPCS: 99285; 73700; 96372; J1885